=== PATIENT | male | born 1985 | race Caucasian/White ===

== ENCOUNTER 2021-09-06 10:39 | Emergency (ER) | payer MEDICAID, SELFPAY ==
[2021-09-06 10:55] VITALS: BP 148/104; PULSE 101; O2SAT 94
[2021-09-06 11:03] VITALS: BP 127/84; PULSE 90; RESP 18; TEMP 37.1; O2SAT 94; BMI 30.4
--- NOTE | 2021-09-06 11:10 | ED.MALEGU ---
HPI - Male Genitourinary General Chief complaint: Urogenital-Male Stated complaint: UNABLE TO EMPTY BLADDER FROM SNF Time Seen by Provider: 09/06/21 11:10 History of Present Illness HPI Narrative: Patient sent from halfway facility for possible urinary retention, he was uncomfortable and unable to urinate this morning, a bladder scan was done at the facility which showed he had retained 700 cc of urine, Rojas was placed later which only drained 50 or 60 cc and he was brought to the ER Here he is very comfortable, he does not feel a need to urinate when asked to void he was able to urinate a small quantity into a cup, he had no nausea no vomiting no abdominal pain no pain of any kind no discomfort no back pain no fever Related Data Home Medications Medication Instructions Recorded Confirmed acetaminophen 650 mg tablet 650 mg PO Q6H PRN Fever 09/06/21 09/06/21 Allergies Allergy/AdvReac Type Severity Reaction Status Date / Time No Known Allergies Allergy Verified 09/06/21 11:07 Review of Systems Review of Systems: Negatives are no fever no chills no dizziness no weakness no headache no neck pain no chest pain no abdominal pain no nausea or vomiting no dysuria no burning with urination, denies any frequency or burning with urination, denies any incontinence, no leg swelling no rash Yes all other systems are reviewed and are negative [facility] Past Medical History [facility] Narrative: Patient has history of neurogenic bladder, but is able to urinate on his own, 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 Source: nursing notes reviewed Social History Social History Advance Directives: No Advance Directives Information Provided: No Physical Exam Vital Signs: Vital Signs: Last Vital Signs Temp 98.7 F 09/06/21 13:11 Pulse 91 09/06/21 13:11 Resp 20 09/06/21 13:11 BP 127/75 09/06/21 13:11 Pulse Ox 94 09/06/21 13:11 O2 Del Method 09/06/21 13:11 BMI result Body Mass Index 30.4 General appearance comfortable cooperative no acute distress Head is normocephalic atraumatic The mucous membranes are moist The neck is supple Chest is clear to auscultation bilateral Heart no murmur Abdomen soft nontender, there is no bladder tenderness Extremities full range of motion x4 Course Course Course Narrative: Patient was able to void some urine, postvoid residual showed 120 mL remaining I called the nursing facility at [facility] and spoke to his nurse who said this is likely his baseline as he does have a neurogenic bladder Patient had no discomfort, labs were checked urinalysis was normal, renal function was normal no other acute abnormalities He was allowed to drink some fluids, then asked to void which she did easily and bladder scan was repeated showing a postvoid residual of 63 mL Patient is asymptomatic feels fine and is discharged [facility] - Male Genitourinary Lab Data Attestation: I reviewed the patient's lab results. Result diagrams: 09/06/21 13:00 09/06/21 13:01 Labs: Lab Results 09/06/21 09/06/21 09/06/21 Range/Units 11:59 13:00 13:01 WBC 8.9 (4.8-10.8) X10*3/uL RBC 5.38 (4.60-5.80) X10*6/uL Hgb 16.4 (14.0-18.0) g/dl Hct 47.9 (42.0-52.0) % MCV 89.0 (80.0-98.0) fL MCH 30.5 (27.0-33.0) pg MCHC 34.2 (31.0-36.0) g/dl RDW 12.8 (11.0-16.0) % Plt Count 253 (160-400) X10*3/uL MPV 11.4 (9.4-12.4) fL Immature Gran % (Auto) 0.3 (0.0-0.4) % Neut % (Auto) 69.1 (45-73) % Lymph % (Auto) 25.3 (20-40) % [place] % (Auto) 4.1 (2-11) % Eos % (Auto) 0.7 (0-4) % Baso % (Auto) 0.5 (0-2) % Lymph # (Auto) 2.2 (1.2-4.9) X10*3/uL [place] # (Auto) 0.4 (0.1-1.2) X10*3/uL Eos # (Auto) 0.1 (0.0-0.4) X10*3/uL Baso # (Auto) 0.0 (0.0-0.2) X10*3/uL Abs Immat Gran (auto) 0.03 (0.00-0.03) X10*3/uL Absolute Neuts (auto) 6.1 (2.0-8.3) x10*3/uL Absolute Nucleated RBC 0.000 (0.0-0.012) X10*3/uL Nucleated RBC % (auto) 0.0 (0.0-0.2) /100WBC Sodium 140 (135-145) mmol/L Potassium 4.1 (3.3-5.1) mmol/L Chloride 107 (96-108) mmol/L Carbon Dioxide 22 (22-29) mmol/L Anion Gap 15 (12-20) BUN 10 (9-16) mg/dL Creatinine 0.81 (0.5-1.4) mg/dL Estim Creat Clear Calc 150.9 Estimated GFR > 60 Random Glucose 120 H (60-115) mg/dL Calcium 9.7 (8.4-10.2) mg/dL Urine Color DK YELLOW Urine Appearance HAZY Urine pH 5.5 (5.0-8.0) Ur Specific [place] >= 1.030 H (1.005-1.025) Urine Protein 1+ H (NEG-TRACE) MG/DL Urine Glucose (UA) NEG (NEG) MG/DL Urine Ketones NEG (NEG) MG/DL Urine Blood TRACE (NEG) Urine Nitrite NEG (NEG) Ur Leukocyte Esterase NEG (NEG) Urine RBC 1-4 (0) /HPF Urine WBC 5-9 H (0-4) /HPF Ur Squamous Epith Cells 1+ /LPF Ur Renal Epithelial Cell 2+ /LPF Calcium Oxalate Crystal TRACE /LPF Urine Bacteria NONE /LPF Hyaline Casts 1-4 /LPF Urine Mucus 4+ /LPF Discharge Plan Discharge Clinical Impression: Dysuria Patient Disposition: Home, Self-Care Additional Instructions: At this time your voiding easily, we did a 2nd post void residual which showed 69 mL in the bladder which is normal, urinalysis did not show an acute infection, kidney function was normal Your okay to return to your facility Return any time any worse condition or any concerns Prescriptions: No Action acetaminophen 650 mg Tablet 650 mg PO Q6H PRN (Reason: Fever)
[2021-09-06 12:09] LABS: Appearance Urine HAZY; Color Urine DK YELLOW; Glucose Urine UA NEG (NEG); Leukocyte Esterase Urine NEG (NEG); Nitrite Urine NEG (NEG); PH 5.5 (5.0-8.0); Specific Gravity - Urine >= 1.030 (1.005-1.025); UACC Culture Trigger NO; Urine Blood TRACE (NEG); Urine Ketones NEG (NEG); Urine Protein 1+ MG/DL (NEG-TRACE)
[2021-09-06 13:07] LABS: MANUAL DIFF FLAG NO
[2021-09-06 13:07] LABS: Mucus Urine 4+ /LPF; Renal Epithelial Cells Urine 2+ /LPF; Squamous Epithelial Cell Urine 1+ /LPF; UACC CULT YES
[2021-09-06 13:08] LABS: Calcium Oxalate Crystals Urine TRACE /LPF
[2021-09-06 13:11] VITALS: BP 127/75; PULSE 91; RESP 20; TEMP 37.1; O2SAT 94
[2021-09-06 13:12] LABS: Basophils Percent Auto 0.5 % (0-2); Eosinophils Absolute Auto 0.1 X10*3/uL (0.0-0.4); Eosinophils Percent Auto 0.7 % (0-4); Hematocrit 47.9 % (42.0-52.0); Hemoglobin 16.4 g/dl (14.0-18.0); Imm Gran Abs Auto 0.03 X10*3/uL (0.00-0.03); Imm Gran Pct Auto 0.3 % (0.0-0.4); Lymphocytes Absolute Auto 2.2 X10*3/uL (1.2-4.9); Lymphocytes Percent Auto 25.3 % (20-40); Mean Corpuscular HGB Conc 34.2 g/dl (31.0-36.0); Mean Corpuscular Hemoglobin 30.5 pg (27.0-33.0); Mean Platelet Volume 11.4 fL (9.4-12.4); Monocytes Absolute Auto 0.4 X10*3/uL (0.1-1.2); Monocytes Percent Auto 4.1 % (2-11); Neutrophils Absolute Auto 6.1 x10*3/uL (2.0-8.3); Neutrophils Percent Auto 69.1 % (45-73); Platelet Count 253 X10*3/uL (160-400); Red Blood Count 5.38 X10*6/uL (4.60-5.80); Red Cell Distribution Width 12.8 % (11.0-16.0); White Blood Count 8.9 X10*3/uL (4.8-10.8)
[2021-09-06 13:24] LABS: Anion Gap 15 (12-20); Blood Urea Nitrogen 10 mg/dL (9-16); Calcium 9.7 mg/dL (8.4-10.2); Carbon Dioxide 22 mmol/L (22-29); Chloride 107 mmol/L (96-108); Creatinine Clr Calc Pharmacy 150.9; Estimated Glomerular Filt Rate > 60; Glucose Random 120 mg/dL (60-115); Potassium 4.1 mmol/L (3.3-5.1); Sodium 140 mmol/L (135-145)
--- NOTE | 2021-09-06 14:13 | PC.NURSE ---
Patient moved to ED Bed 22 More. Plan for EMS transfer back to [facility]. Estimated time of EMS arrival is 8pm at this time, per ED [place], Pam. Pt is calm/cooperative at this time.
--- NOTE | 2021-09-06 18:53 | PHA.MEDREC ---
Pharmacy Consult ? Medication Reconciliation Pharmacy has completed the medication reconciliation. List obtained from [facility]
[2021-09-06] MEDS: clonazePAM 0.5 MG TABLET PO (22:52)
--- NOTE | 2021-09-06 23:08 | PC.NURSE ---
spoke w RN at [facility], pt medicated w pm clonazepam.
--- NOTE | 2021-09-07 00:19 | PC.NURSE ---
Per action dispatch enzo, [facility] will take transfer
== END 2021-09-07 01:30 | disposition skilled nursing facility (03) ==
PROVIDERS: Physician Assistant Medical; Emergency Provider Emergency Medicine Emergency Medical Services; PCP Hospitalist
DX: R30.0 Dysuria (principal)
CPT/HCPCS: 36415; 51798; 80048; 81001; 85025; 87086; 99283

== ENCOUNTER → 2021-09-17 10:23 | Outpatient (BNVA) | payer MEDICAID, SELFPAY | PROVIDERS: PCP Hospitalist; Visit Provider Urology | DX: R33.9 Retention of urine, unspecified (principal) | CPT/HCPCS: 51798; 99202 ==

== ENCOUNTER 2021-12-15 21:40 | Emergency (ER) | payer MEDICAID, SELFPAY ==
--- NOTE | ~2021-12-15 | XR_ITS ---
EXAMINATION: XR CHEST CLINICAL INFORMATION: Diaphoresis and tremors. Rule out pneumonia. COMPARISON: None TECHNIQUE: Frontal view of the chest was obtained. FINDINGS: Cardiac leads overlie the chest. Elevated right hemidiaphragm. No consolidation, edema, or effusion. No pneumothorax. The cardiomediastinal silhouette is within normal limits. No acute osseous abnormality. XR/XR chest 1V IMPRESSION: No acute pulmonary disease.
[2021-12-15 21:50] VITALS: BP 130/90; BP 131/84; PULSE 102; PULSE 103; RESP 18; TEMP 37.1; O2SAT 94; O2SAT 95; BMI 30.3
--- NOTE | 2021-12-15 21:56 | ED_ITS ---
HPI - General Adult General Chief complaint: General Medical Stated complaint: tremors Time Seen by Provider: 12/15/21 21:46 Source: patient and EMS Mode of arrival: EMS Limitations: no limitations History of Present Illness HPI narrative: 36-year-old male history of anoxic brain injury patient is a resident of [facility] brought in by ambulance for evaluation of diaphoresis and increased tremor and shakiness all day today. Patient declined using any drugs or overdosing on any of his medication, decline headache, chest pain, or abdominal pain. Related Data Home Medications Medication Instructions Recorded Confirmed acetaminophen 650 mg tablet 650 mg PO Q6H PRN Fever 09/06/21 09/06/21 baclofen 10 mg tablet 1 tab PO TID 09/06/21 09/06/21 bisacodyl 10 mg rectal suppository 10 mg [place] DAILY PRN Constipation 09/06/21 09/06/21 cholecalciferol (vitamin D3) 25 25 mcg PO DAILY 09/06/21 09/06/21 mcg (1,000 unit) tablet clonazepam 0.25 mg disintegrating 0.25 mg PO BID 09/06/21 09/06/21 tablet diclofenac sodium 1 % topical gel 1 ea topical DAILY 09/06/21 09/06/21 docusate sodium 100 mg capsule 100 mg PO BID 09/06/21 09/06/21 hydrocortisone 2.5 % topical cream 1 appl topical DAILY 09/06/21 09/06/21 levetiracetam 250 mg tablet 1 tab PO BID 09/06/21 09/06/21 pramipexole 1 mg tablet 1 tab PO BEDTIME 09/06/21 09/06/21 pyridoxine (vitamin B6) 50 mg 50 mg PO DAILY 09/06/21 09/06/21 capsule thiamine HCl (vitamin B1) 100 mg 100 mg PO DAILY 09/06/21 09/06/21 tablet clonazepam 0.5 mg tablet 0.5 mg PO DAILY PRN 09/16/21 levetiracetam 1,000 mg tablet 1,000 mg PO BID 09/16/21 levetiracetam 500 mg tablet 500 mg PO BID 09/16/21 pramipexole 0.25 mg tablet mg PO 09/16/21 pramipexole 0.5 mg tablet 0.5 mg PO BEDTIME 09/16/21 Previous Rx's Medication Instructions Recorded bethanechol chloride 50 mg tablet 50 mg PO BID 90 days #180 tabs 09/17/21 Allergies Allergy/AdvReac Type Severity Reaction Status Date / Time No Known Allergies Allergy Verified 09/16/21 15:14 Review of Systems Review of Systems: All other systems are reviewed and are negative Constitutional: Reports as per HPI and Reports no additional constitutional complaints Eyes: Reports as per HPI and Reports no additional eye complaints Reports system reviewed and no additional complaints, except as documented Cardiovascular: Reports as per HPI and Reports no additional cardiovascular complaints Respiratory: Reports as per HPI and Reports no additional respiratory complaints Gastrointestinal: Reports as per HPI and Reports no additional gastrointestinal complaints Genitourinary: Reports no additional female genitourinary complaints Musculoskeletal: Reports no additional musculoskeletal complaints Skin/Breast: Reports system reviewed and no additional complaints, except as docu Psychiatric: Reports no additional psychiatric complaints Endocrine: Reports no additional endocrine complaints Hematologic/Lymphatic: Reports no additional hematologic/lymphatic complaints Allergic/Immunologic: Reports no additional allergic/immunologic complaints Reports system reviewed and no additional complaints, except as documented and Reports Abnormal speech present [facility] Past Medical History Medical History Acute insomnia Anoxic brain damage Anxiety Constipation Dry eye syndrome Dysarthria Gait abnormality Myalgia Neurogenic bladder Social History Social History Advance Directives: No Advance Directives Information Provided: No Physical Exam ED Vital Signs: Vital Signs - 24 hr 12/15/21 21:50 12/15/21 22:14 Temperature 98.7 F 98.9 F Pulse Rate 103 H 84 Respiratory Rate 18 16 Blood Pressure 131/84 130/79 Pulse Oximetry 94 91 L Oxygen Delivery Method Room Air Room Air BMI result Body Mass Index 30.3 Vital signs have been reviewed as appeared to be correct. Blood pressure normal. Heart rate normal. Respiration rate normal. Temperature normal. Oxygen saturation normal. Appearance: Alert. No acute distress, involuntary tremors Head: Normal external exam. Normocephalic. Atraumatic. No Ramirez signs noted. No raccoon eyes noted Eyes: PERRLA. EOMI. Conjunctiva and sclera normal. Eyelids normal. ENT: TM's Normal. Pharynx normal. Uvula midline. Moist mucous membranes. No trismus noted. No drooling noted. No muffled voice noted. Neck: Normal inspection. Neck supple. FROM. No adenopathy. Thyroid Normal. No meningeal signs. No neck mass noted. CVS: Normal heart rate and rhythm. Heart sound normal. No murmurs noted. Pulses normal throughout. Respiratory: No respiratory distress. Painless inspiration. Breath sounds norm al. No wheezes/rales/rhonchi noted. Chest nontender. No accessory muscle usage noted or decreased air movement noted. Abdomen: Soft and nontender. Bowel sounds normal in all 4 quadrants. No distenti on noted. No organomegaly noted. No visible injury noted. Back: No CVA tenderness. Full range of motion noted. Skin: Skin warm and dry. Normal skin color. Normal skin turgor. No rashes/lesions/lacerations noted. Extremities: No lower extremity edema. Extremities exhibit normal range of motion. Extremities nontender. Neuro: Oriented X 3. Cranial nerve exam: II-XII are grossly intact No motor deficit. No sensory deficit. Reflexes normal. Fine involuntary tremors Course Course Course Narrative: 36-year-old male with with history of anoxic brain injury came in complaining of tremors, physical exam is unremarkable, patient able to drink and eat in the emergency department with good appetite, chest x-ray is unremarkable. Patient has no symptoms to suggest infection. Patient now is sleeping relaxed with no apparent distress. Will discharge in the a.m.. Medical Decision Making Lab Data Lab results reviewed: Yes I reviewed the patient's lab results. Result diagrams: 12/15/21 22:05 12/15/21 22:59 Labs: Lab Results 12/15/21 12/15/21 12/15/21 Range/Units 22:05 22:05 22:05 WBC 9.0 (4.8-10.8) X10*3/uL RBC 5.28 (4.60-5.80) X10*6/uL Hgb 16.3 (14.0-18.0) g/dl Hct 47.8 (42.0-52.0) % MCV 90.5 (80.0-98.0) fL MCH 30.9 (27.0-33.0) pg MCHC 34.1 (31.0-36.0) g/dl RDW 12.8 (11.0-16.0) % Plt Count 278 (160-400) X10*3/uL MPV 11.8 (9.4-12.4) fL Immature Gran % (Auto) 0.2 (0.0-0.4) % Neut % (Auto) 48.1 (45-73) % Lymph % (Auto) 43.1 H (20-40) % [place] % (Auto) 5.9 (2-11) % Eos % (Auto) 2.3 (0-4) % Baso % (Auto) 0.4 (0-2) % Lymph # (Auto) 3.9 (1.2-4.9) X10*3/uL [place] # (Auto) 0.5 (0.1-1.2) X10*3/uL Eos # (Auto) 0.2 (0.0-0.4) X10*3/uL Baso # (Auto) 0.0 (0.0-0.2) X10*3/uL Abs Immat Gran (auto) 0.02 (0.00-0.03) X10*3/uL Absolute Neuts (auto) 4.3 (2.0-8.3) x10*3/uL Absolute Nucleated RBC 0.000 (0.0-0.012) X10*3/uL Nucleated RBC % (auto) 0.0 (0.0-0.2) /100WBC Sodium 142 (135-145) mmol/L Potassium 4.6 (3.3-5.1) mmol/L Chloride 107 (96-108) mmol/L Carbon Dioxide 25 (22-29) mmol/L Anion Gap 15 (12-20) BUN 14 (9-16) mg/dL Creatinine 0.85 (0.5-1.4) mg/dL Estim Creat Clear Calc 142.3 Estimated GFR > 60 Random Glucose 77 D (60-115) mg/dL Lactic Acid (0.5-2.0) mmol/L Calcium 9.9 (8.4-10.2) mg/dL Total Bilirubin 0.5 (0.0-1.0) mg/dL Direct Bilirubin < 0.2 (0.0-0.5) mg/dL AST 41 H (5-37) U/L ALT 64 H (0-40) U/L Alkaline Phosphatase 72 (39-117) U/L B-Natriuretic Peptide < 10 (<100) pg/mL Total Protein 7.5 (6.5-8.0) g/dL Albumin 4.7 (3.5-5.0) g/dL Lipase 26 (8-78) U/L Urine Color Urine Appearance Urine pH (5.0-9.0) Ur Specific [place] (1.005-1.025) Urine Protein (Neg-Trace) mg/dL Urine Glucose (UA) (Negative) mg/dL Urine Ketones (Negative) mg/dL Urine Blood (Negative) Urine Nitrite (Negative) Ur Leukocyte Esterase (Negative) COVID-19 (TINO) (Negative) COVID-19 Clin Com 12/15/21 12/15/21 12/15/21 Range/Units 22:05 22:59 22:59 WBC (4.8-10.8) X10*3/uL RBC (4.60-5.80) X10*6/uL Hgb (14.0-18.0) g/dl Hct (42.0-52.0) % MCV (80.0-98.0) fL MCH (27.0-33.0) pg MCHC (31.0-36.0) g/dl RDW (11.0-16.0) % Plt Count (160-400) X10*3/uL MPV (9.4-12.4) fL Immature Gran % (Auto) (0.0-0.4) % Neut % (Auto) (45-73) % Lymph % (Auto) (20-40) % [place] % (Auto) (2-11) % Eos % (Auto) (0-4) % Baso % (Auto) (0-2) % Lymph # (Auto) (1.2-4.9) X10*3/uL [place] # (Auto) (0.1-1.2) X10*3/uL Eos # (Auto) (0.0-0.4) X10*3/uL Baso # (Auto) (0.0-0.2) X10*3/uL Abs Immat Gran (auto) (0.00-0.03) X10*3/uL Absolute Neuts (auto) (2.0-8.3) x10*3/uL Absolute Nucleated RBC (0.0-0.012) X10*3/uL Nucleated RBC % (auto) (0.0-0.2) /100WBC Sodium 142 (135-145) mmol/L Potassium 4.2 (3.3-5.1) mmol/L Chloride 106 (96-108) mmol/L Carbon Dioxide 27 (22-29) mmol/L Anion Gap 13 (12-20) BUN 15 (9-16) mg/dL Creatinine 0.90 (0.5-1.4) mg/dL Estim Creat Clear Calc 134.4 Estimated GFR > 60 Random Glucose 123 H D (60-115) mg/dL Lactic Acid 1.4 (0.5-2.0) mmol/L Calcium 9.6 (8.4-10.2) mg/dL Total Bilirubin (0.0-1.0) mg/dL Direct Bilirubin (0.0-0.5) mg/dL AST (5-37) U/L ALT (0-40) U/L Alkaline Phosphatase (39-117) U/L B-Natriuretic Peptide (<100) pg/mL Total Protein (6.5-8.0) g/dL Albumin (3.5-5.0) g/dL Lipase (8-78) U/L Urine Color Urine Appearance Urine pH (5.0-9.0) Ur Specific [place] (1.005-1.025) Urine Protein (Neg-Trace) mg/dL Urine Glucose (UA) (Negative) mg/dL Urine Ketones (Negative) mg/dL Urine Blood (Negative) Urine Nitrite (Negative) Ur Leukocyte Esterase (Negative) COVID-19 (TINO) Negative (Negative) COVID-19 Clin Com See Note 12/16/21 Range/Units 00:32 WBC (4.8-10.8) X10*3/uL RBC (4.60-5.80) X10*6/uL Hgb (14.0-18.0) g/dl Hct (42.0-52.0) % MCV (80.0-98.0) fL MCH (27.0-33.0) pg MCHC (31.0-36.0) g/dl RDW (11.0-16.0) % Plt Count (160-400) X10*3/uL MPV (9.4-12.4) fL Immature Gran % (Auto) (0.0-0.4) % Neut % (Auto) (45-73) % Lymph % (Auto) (20-40) % [place] % (Auto) (2-11) % Eos % (Auto) (0-4) % Baso % (Auto) (0-2) % Lymph # (Auto) (1.2-4.9) X10*3/uL [place] # (Auto) (0.1-1.2) X10*3/uL Eos # (Auto) (0.0-0.4) X10*3/uL Baso # (Auto) (0.0-0.2) X10*3/uL Abs Immat Gran (auto) (0.00-0.03) X10*3/uL Absolute Neuts (auto) (2.0-8.3) x10*3/uL Absolute Nucleated RBC (0.0-0.012) X10*3/uL Nucleated RBC % (auto) (0.0-0.2) /100WBC Sodium (135-145) mmol/L Potassium (3.3-5.1) mmol/L Chloride (96-108) mmol/L Carbon Dioxide (22-29) mmol/L Anion Gap (12-20) BUN (9-16) mg/dL Creatinine (0.5-1.4) mg/dL Estim Creat Clear Calc Estimated GFR Random Glucose (60-115) mg/dL Lactic Acid (0.5-2.0) mmol/L Calcium (8.4-10.2) mg/dL Total Bilirubin (0.0-1.0) mg/dL Direct Bilirubin (0.0-0.5) mg/dL AST (5-37) U/L ALT (0-40) U/L Alkaline Phosphatase (39-117) U/L B-Natriuretic Peptide (<100) pg/mL Total Protein (6.5-8.0) g/dL Albumin (3.5-5.0) g/dL Lipase (8-78) U/L Urine Color Yellow Urine Appearance Clear Urine pH 6.0 (5.0-9.0) Ur Specific [place] 1.025 (1.005-1.025) Urine Protein Trace (Neg-Trace) mg/dL Urine Glucose (UA) Negative (Negative) mg/dL Urine Ketones Trace (Negative) mg/dL Urine Blood Negative (Negative) Urine Nitrite Negative (Negative) Ur Leukocyte Esterase Negative (Negative) COVID-19 (TINO) (Negative) COVID-19 Clin Com Imaging Data Chest x-ray: Attestation: I personally reviewed and interpreted this imaging study as follows: Radiologist's impression: No acute pulmonary disease. Discharge Plan Discharge Clinical Impression: Occasional tremors Patient Disposition: Home, Self-Care Instructions: Tremors (ED) Prescriptions: No Action acetaminophen 650 mg Tablet 650 mg PO Q6H PRN (Reason: Fever) pramipexole 1 mg tablet 1 tab PO BEDTIME levetiracetam 250 mg tablet 1 tab PO BID baclofen 10 mg tablet 1 tab PO TID hydrocortisone 2.5 % cream 1 appl topical DAILY diclofenac sodium 1 % gel 1 ea topical DAILY thiamine HCl (vitamin B1) 100 mg Tablet 100 mg PO DAILY bisacodyl 10 mg Suppository 10 mg [place] DAILY PRN (Reason: Constipation) docusate sodium 100 mg Capsule 100 mg PO BID clonazepam 0.25 mg Tablet,Disintegrating 0.25 mg PO BID cholecalciferol (vitamin D3) 25 mcg (1,000 unit) Tablet 25 mcg PO DAILY pyridoxine (vitamin B6) 50 mg Capsule 50 mg PO DAILY clonazepam 0.5 mg tablet 0.5 mg PO DAILY PRN pramipexole 0.25 mg tablet PO levetiracetam 500 mg tablet 500 mg PO BID pramipexole 0.5 mg tablet 0.5 mg PO BEDTIME levetiracetam 1,000 mg tablet 1,000 mg PO BID bethanechol chloride 50 mg tablet 50 mg PO BID 90 Days Qty: 180 1RF Referrals: Physician,Unknown J [Primary Care Provider] -
[2021-12-15] MEDS: 0.9 % Sodium Chloride 1,000 ML 999 ML IV (22:10)
[2021-12-15 22:12] LABS: MANUAL DIFF FLAG NO
[2021-12-15 22:13] LABS: Basophils Percent Auto 0.4 % (0-2); Eosinophils Absolute Auto 0.2 X10*3/uL (0.0-0.4); Eosinophils Percent Auto 2.3 % (0-4); Hematocrit 47.8 % (42.0-52.0); Hemoglobin 16.3 g/dl (14.0-18.0); Imm Gran Abs Auto 0.02 X10*3/uL (0.00-0.03); Imm Gran Pct Auto 0.2 % (0.0-0.4); Lymphocytes Absolute Auto 3.9 X10*3/uL (1.2-4.9); Lymphocytes Percent Auto 43.1 % (20-40); Mean Corpuscular HGB Conc 34.1 g/dl (31.0-36.0); Mean Corpuscular Hemoglobin 30.9 pg (27.0-33.0); Mean Corpuscular Volume 90.5 fL (80.0-98.0); Mean Platelet Volume 11.8 fL (9.4-12.4); Monocytes Absolute Auto 0.5 X10*3/uL (0.1-1.2); Monocytes Percent Auto 5.9 % (2-11); Neutrophils Absolute Auto 4.3 x10*3/uL (2.0-8.3); Neutrophils Percent Auto 48.1 % (45-73); Platelet Count 278 X10*3/uL (160-400); Red Blood Count 5.28 X10*6/uL (4.60-5.80); Red Cell Distribution Width 12.8 % (11.0-16.0)
[2021-12-15 22:14] VITALS: BP 130/79; PULSE 84; RESP 16; TEMP 37.2; O2SAT 91
[2021-12-15 22:25] LABS: COVID-19 Test Negative (Negative)
[2021-12-15 22:34] LABS: Alanine Aminotransferase 64 U/L (0-40); Albumin Level 4.7 g/dL (3.5-5.0); Alkaline Phosphatase 72 U/L (39-117); Anion Gap 15 (12-20); Aspartate Amino Transferase 41 U/L (5-37); Bilirubin Direct < 0.2 mg/dL (0.0-0.5); Bilirubin Total 0.5 mg/dL (0.0-1.0); Blood Urea Nitrogen 14 mg/dL (9-16); Calcium 9.9 mg/dL (8.4-10.2); Carbon Dioxide 25 mmol/L (22-29); Chloride 107 mmol/L (96-108); Creatinine Clr Calc Pharmacy 142.3; Estimated Glomerular Filt Rate > 60; Glucose Random 77 mg/dL (60-115); Lipase 26 U/L (8-78); Potassium 4.6 mmol/L (3.3-5.1); Sodium 142 mmol/L (135-145); Total Protein 7.5 g/dL (6.5-8.0)
[2021-12-15 22:58] LABS: B Type Natriuretic Peptide < 10 pg/mL (<100)
[2021-12-15 23:16] LABS: Lactic Acid 1.4 mmol/L (0.5-2.0)
[2021-12-15 23:19] LABS: Anion Gap 13 (12-20); Blood Urea Nitrogen 15 mg/dL (9-16); Calcium 9.6 mg/dL (8.4-10.2); Carbon Dioxide 27 mmol/L (22-29); Chloride 106 mmol/L (96-108); Creatinine Clr Calc Pharmacy 134.4; Estimated Glomerular Filt Rate > 60; Glucose Random 123 mg/dL (60-115); Potassium 4.2 mmol/L (3.3-5.1); Sodium 142 mmol/L (135-145)
[2021-12-16 00:41] LABS: Appearance Urine Clear; Color Urine Yellow; Glucose Urine UA Negative (Negative); Leukocyte Esterase Urine Negative (Negative); Nitrite Urine Negative (Negative); Specific Gravity - Urine 1.025 (1.005-1.025); Urine Blood Negative (Negative); Urine Ketones Trace mg/dL (Negative); Urine Protein Trace mg/dL (Neg-Trace)
--- NOTE | 2021-12-16 02:14 | PC.NURSE ---
Patient is alert and oriented x3. He is able to make his needs known. Patient uses urinal independently. Patient is resting comfortably with his eyes closed. VSS, afebrile. Patient is less diaphoretic, no tremors noted when sleeping/calm/at rest.
--- NOTE | 2021-12-16 02:29 | PC.NURSE ---
Kalia called at 0230 for a BLS transfer back to [facility],Dispatch stated they will call back with an ETA.RN aware
--- NOTE | 2021-12-16 02:35 | PC.NURSE ---
Lázaro called at 0235 with an ETA of after 7am. RN aware
== END 2021-12-16 10:37 | disposition home or self-care (01) ==
PROVIDERS: Emergency Provider Emergency Medicine
DX: R25.1 Tremor, unspecified (principal); R61 Generalized hyperhidrosis; Z20.822 Contact with and (suspected) exposure to COVID-19; Z79.899 Other long term (current) drug therapy
CPT/HCPCS: 71045; 80048; 80076; 81003; 83605; 83690; 83880; 85025; 87040; 87635; 96360; 96361; 99284

== ENCOUNTER → 2022-03-21 10:03 | Outpatient (BNVA) | payer MEDICAID, SELFPAY | PROVIDERS: PCP Hospitalist; Visit Provider Urology | DX: R33.9 Retention of urine, unspecified (principal); N31.9 Neuromuscular dysfunction of bladder, unspecified | CPT/HCPCS: 51798; 99212 ==

== ENCOUNTER 2022-09-25 10:33 | Outpatient (AMB) | payer MEDICAID, SELFPAY ==
--- NOTE | 2022-09-25 10:45 | MHC.OFFVIS ---
Intake Intake Visit Reasons: 6m follow up/PVR Intake Note: Patient is present for PVR Urology Med: Betehanechol, Vitamin b6 Antibiotic Allergy:None Blood Thinner: None Pharmacy: [facility] PVR: 0ml Allergies No Known Allergies Allergy (Verified 09/25/22 10:46) HPI HPI Comments History of Present Illness Details Dino is a [facility] resident. He is a patient of Dr. Bull. He is seen for the following urologic condition - incomplete bladder emptying, neurogenic bladder Continued good response to bethanechol PVR today 0 cc Follow every 6 months - see nurse practitioner 6 months for review Incomplete bladder emptying Background seizure disorder Long-term medication Resident of a care facility Wheelchair dependent Initial High PVR Current therapy bethanechol PFSH Medical History Acute insomnia Anoxic brain damage Anxiety Constipation Dry eye syndrome Dysarthria Gait abnormality Myalgia Neurogenic bladder Review of Systems Const Denies chills and Denies fever(s) Card Reports no additional complaints and Denies syncope Resp Denies cough GI Denies abdominal pain and Denies heartburn Reports as per HPI and Denies change in libido Neuro Denies syncope Psych Denies change in libido Endo Denies change in libido Physical Exam Const General: cooperative, healthy appearing, comfortable and no acute distress Orientation/consciousness: patient oriented x3 HEENT Face and sinus: Yes normal facial exam Mouth: moist mucous membranes Neck Neck: Yes normal visual inspection, Yes full ROM and Yes trachea midline Chest Chest palpation & inspection: normal inspection of the chest Resp Effort & Inspection: normal respiratory effort, able to speak in complete sentences and no respiratory distress GI Inspection: Yes normal to inspection Back/Spine/Pelvis Cervical Spine: normal cervical lordosis Thoracic/Lumbar Spine: thoracic and lumbar spine normal to inspection Skin General skin exam: no rashes or lesions noted Neuro General: patient oriented x3, gait normal, tone normal and moves all extremities Extrem General: Yes normal to inspection and Yes capillary refill normal Office Procedures Post Void Residual Post Residual Void Post Void Residual (PVR): 0 34621-Muis Void Residual by ultrasound Assessment & Plan Assessment & Plan (1) Urinary retention with incomplete bladder emptying: Code(s): R33.9 - Retention of urine, unspecified Plan Six month follow-up Orders: Orders AMB Post Void Residual by ultrasound Today R33.9 - Retention of urine, unspecified Patient Instructions: Imaging studies, laboratory and physical exam results were discussed and reviewed in detail. No major barriers to patient understanding were identified. An opportunity to ask questions regarding the treatment plan was provided. All questions were answered. The patient expressed understanding and agreement with the above treatment plan. The patient is aware they should contact our office by phone for worsening of their current condition or the appearance of new urologic symptoms. Compliance is encouraged with any medications and followup testing that is ordered. It is a privilege to participate in the urologic care of your patient. If you have any questions or concerns regarding treatment for the above conditions, or other urologic issues, please do not hesitate to contact me. The office telephone contact is [phone]. This note is constructed using voice recognition software. While every effort has been made to ensure accuracy printed circuit boards plasma etcher errors may have been included. Yours sincerely, Dr Kelvin Nunez MD, [facility] - Urology Providers of Expert, Compassionate Care for the Genitourinary System Coding Level of Care Code Est Pt Level 3 (51902) Diagnoses Urinary retention with incomplete bladder emptying R33.9 CPT Codes Post Residual Void - PVR CPT Code: 14939-Tbys Void Residual by ultrasound ([id number])
== END 2022-09-25 10:59 | disposition home or self-care (01) ==
LOC: HO.HUSH 10:33
PROVIDERS: PCP Hospitalist; Visit Provider Urology
DX: R33.9 Retention of urine, unspecified (principal)
CPT/HCPCS: 99213

== ENCOUNTER → 2022-09-25 10:33 | Outpatient (BNVA) | payer MEDICAID, SELFPAY | PROVIDERS: PCP Hospitalist; Visit Provider Urology | DX: N31.9 Neuromuscular dysfunction of bladder, unspecified (principal); R33.9 Retention of urine, unspecified | CPT/HCPCS: 51798; 99212 ==

== ENCOUNTER 2023-07-08 14:02 | Outpatient (AMB) | payer MEDICAID, SELFPAY ==
--- NOTE | 2023-07-08 14:31 | A.OFFVIS_ITS ---
Intake Visit Reasons: 6m/PVR Intake Note: Patient is present for PVR Urology Med: Betehanechol, Vitamin b6 Antibiotic Allergy:None Blood Thinner: None Pharmacy: formerly [facility] PVR: 0ml Recreational Vehicle Repairer Required: No Accompanied by: Self / Same As Patient Allergies No Known Allergies Allergy (Verified 09/25/22 10:46) Medication List - Last Reconciled 07/08/23 by Kelvin Nunez MD acetaminophen 650 mg PO Q6H PRN baclofen 1 tab PO TID bethanechol chloride 50 mg PO BID 90 days bisacodyl 10 mg MD DAILY PRN cholecalciferol (vitamin D3) 25 mcg PO DAILY clonazepam 0.25 mg PO BID clonazepam 0.5 mg PO DAILY PRN diclofenac sodium 1% 1 ea topical DAILY docusate sodium 100 mg PO BID duloxetine 30 mg PO DAILY hydrocortisone 2.5% 1 appl topical DAILY levetiracetam 1 tab PO BID levetiracetam 500 mg PO BID levetiracetam 1,000 mg PO BID pramipexole 1 tab PO BEDTIME pramipexole mg PO pramipexole 0.5 mg PO BEDTIME pyridoxine (vitamin B6) 50 mg PO DAILY thiamine HCl (vitamin B1) 100 mg PO DAILY HPI Comments Details: Dino is a formerly [facility] resident. He is a patient of Dr. Bull. He is seen for the following urologic condition - incomplete bladder emptying, neurogenic bladder Continued good response to bethanechol PVR today 0 cc See in 12 months with nurse practitioner Incomplete bladder emptying Background seizure disorder Long-term medication Resident of a care facility Wheelchair dependent Initial High PVR Current therapy bethanechol PFSH Medical History Neurogenic bladder Dysarthria Gait abnormality Myalgia Dry eye syndrome Anoxic brain damage Anxiety Constipation Acute insomnia Review of Systems Const Denies chills and Denies fever(s) Card Reports no additional complaints and Denies syncope Resp Denies cough GI Denies abdominal pain and Denies heartburn Reports as per HPI and Denies change in libido Neuro Denies syncope Psych Denies change in libido Endo Denies change in libido Physical Exam Const General: cooperative, healthy appearing, comfortable and no acute distress Orientation/consciousness: patient oriented x3 HEENT Face and sinus: Yes normal facial exam Mouth: moist mucous membranes Neck Neck: Yes normal visual inspection, Yes full ROM and Yes trachea midline Chest Chest palpation & inspection: normal inspection of the chest Resp Effort & Inspection: normal respiratory effort, able to speak in complete sentences and no respiratory distress GI Inspection: Yes normal to inspection Back/Spine/Pelvis Cervical Spine: normal cervical lordosis Thoracic/Lumbar Spine: thoracic and lumbar spine normal to inspection Skin General skin exam: no rashes or lesions noted Neuro General: patient oriented x3, gait normal, tone normal and moves all extremities Extrem General: Yes normal to inspection and Yes capillary refill normal Office Procedures Post Void Residual Post Residual Void Post Void Residual (PVR): 0 10430-Rxwi Void Residual by ultrasound Assessment & Plan Assessment & Plan (1) Urinary retention with incomplete bladder emptying: Code(s): R33.9 - Retention of urine, unspecified Category: Medical Plan Twelve month follow-up nurse-practitioner orifice Orders: Orders AMB Post Void Residual by ultrasound 07/08/23 N39.8 - Other specified disorders of urinary system Medications: Refilled bethanechol chloride 50 mg PO BID 180 tabs 3RF 90 days R33.9 - Retention of urine, unspecified Patient Instructions: Imaging studies, laboratory and physical exam results were discussed and reviewed in detail. No major barriers to patient understanding were identified. An opportunity to ask questions regarding the treatment plan was provided. All questions were answered. The patient expressed understanding and agreement with the above treatment plan. The patient is aware they should contact our office by phone for worsening of their current condition or the appearance of new urologic symptoms. Compliance is encouraged with any medications and followup testing that is ordered. It is a privilege to participate in the urologic care of your patient. If you have any questions or concerns regarding treatment for the above conditions, or other urologic issues, please do not hesitate to contact me. The office telephone contact is [phone]. This note is constructed using voice recognition software. While every effort has been made to ensure accuracy regulator assembler errors may have been included. Yours sincerely, Dr Kelvin Nunez MD, [facility] - Urology Providers of Expert, Compassionate Care for the Genitourinary System Coding Level of Care Code Est Pt Level 3 (59764) Diagnoses Urinary retention with incomplete bladder emptying R33.9 CPT Codes Post Residual Void - PVR CPT Code: 20506-Jcry Void Residual by ultrasound ([id number])
== END 2023-07-08 15:02 | disposition home or self-care (01) ==
LOC: HO.HUSH 14:24
PROVIDERS: PCP Hospitalist; Visit Provider Urology
DX: R33.9 Retention of urine, unspecified (principal)
CPT/HCPCS: 99213

== ENCOUNTER → 2023-07-08 14:24 | Outpatient (BNVA) | payer MEDICAID, SELFPAY | PROVIDERS: PCP Hospitalist; Visit Provider Urology | DX: R33.9 Retention of urine, unspecified (principal); N31.9 Neuromuscular dysfunction of bladder, unspecified | CPT/HCPCS: 51798; 99212 ==

== ENCOUNTER 2024-07-06 10:29 | Outpatient (AMB) | payer MEDICAID, SELFPAY ==
--- NOTE | 2024-07-06 10:34 | A.OFFVIS_ITS ---
Intake Visit Reasons: 1y/PVR Intake Note: Patient presents today for follow up on: retention Urology Med: Betehanechol, Vitamin b6 Antibiotic Allergy:None Blood Thinner: None Pharmacy: [facility] PVR: 177ml's Rotary Bar Operator Required: No Accompanied by: swift tender Allergies No Known Allergies Allergy (Verified 07/06/24 20:43) Medication List - Last Reconciled 07/06/24 by MILLIE Hernandez acetaminophen 650 mg PO Q6H PRN atorvastatin 10 mg PO DAILY baclofen 1 tab PO TID bethanechol chloride 50 mg PO BID 90 days bisacodyl 10 mg SD DAILY PRN carboxymethylcellulose sodium 1% (Artificial Tears (carboxymethylcellulose)) 1 drp ophthalmic (eye) QID cholecalciferol (vitamin D3) 25 mcg PO DAILY clonazepam 0.5 mg PO BEDTIME PRN dextroamphetamine-amphetamine 15 mg ER (Adderall XR) 30 mg PO DAILY diclofenac sodium 1% 1 ea topical DAILY docusate sodium 100 mg PO BID duloxetine 30 mg PO DAILY hydrocortisone 2.5% 1 appl topical DAILY levetiracetam (Keppra) 750 mg PO ONCE nicotine 1 patch transdermal DAILY omega-3 fatty acids 1,000 mg PO DAILY pramipexole 1 tab PO BEDTIME pyridoxine (vitamin B6) 50 mg PO DAILY sodium phosphates 19-7 gram/118 mL (Fleet Enema) 118 mL SD DAILY PRN thiamine HCl (vitamin B1) 100 mg PO DAILY HPI Comments Details: Dino is a 38-year-old male patient of Dr. Bull who resides at [facility]. He has a past medical history of neurogenic bladder, dysarthria, gait abnormality, malacia, dry eye syndrome, anoxic brain in damage, anxiety, constipation, and insomnia. He presents to the office today for follow-up of his neurogenic bladder/incomplete bladder emptying. In discussion with the patient today he continues to discuss not wanting to be on any medications especially bladder medications as he feels he does not have a bladder issue. Unable to obtain urine today for urinalysis as patient unable to void however PVR 177ml's. We discussed potential causes and affects of incomplete bladder emptying and importance of taking medications as prescribed as he does report refusal noncompliance of all medications while residing at [facility]. He denies urinary urgency, urinary frequency, incontinence, nocturia, hematuria, dysuria, foul smelling urine, changes to urinary stream, flank pain, fever, and or chills. He is happy with his current voiding parameters. He otherwise offers no other issues or concerns at this time. PREVIOUS OFFICE NOTE: Incomplete bladder emptying Background seizure disorder Long-term medication Resident of a care facility Wheelchair dependent Initial High PVR Current therapy bethanechol [facility] Medical History Neurogenic bladder Dysarthria Gait abnormality Myalgia Dry eye syndrome Anoxic brain damage Anxiety Constipation Acute insomnia Review of Systems Const All systems reviewed & are unremarkable except as noted in HPI and below Physical Exam Const General: cooperative, comfortable, no acute distress, alert and awake Orientation/consciousness: oriented to person Limitations: ambulation with walker HEENT Head: Yes normal to inspection Eyes General: appearance normal, both eyes and all related structures Neck Neck: Yes normal visual inspection Chest Chest palpation & inspection: normal inspection of the chest Resp Effort & Inspection: normal respiratory effort Cardio Rate: regular rate GI Inspection: Yes normal to inspection General: Yes no CVA tenderness Back/Spine/Pelvis Back: no CVA tenderness Skin General skin exam: no rashes or lesions noted Neuro General: oriented to person Extrem General: Yes normal to inspection Psych Mental Status: other (TBI- slow to respond) Attitude: Avoids eye contact (attititude/behavior) Insight: Fair insight present (Psych) Judgement: Fair judgement present (Psych) Office Procedures Post Void Residual Post Residual Void Post Void Residual (PVR): 177 [id number] Void Residual by ultrasound Assessment & Plan Assessment & Plan (1) Urinary retention with incomplete bladder emptying: Code(s): R33.9 - Retention of urine, unspecified Category: Medical Plan Unable to obtain urine for urinalysis however PVR 177 mL. We discussed importance of taking medications as prescribed. We discussed potential causes and affects of incomplete bladder emptying; we discussed further treatment options and risks and benefits of these treatment options. Continue bethanechol as discussed and prescribed. He currently denies any bothersome urinary issues or concerns. He reports be happy with current voiding parameters. We discussed sooner appointment as patient with increased PVR in does not wish to be on any medication including urological medications; however patient does not feel this is necessary as he believes he does not have any urological issues and or concerns Discussed attempting to sit when voiding to relax pelvis and assist with bladder emptying Follow-up in 1 year with PVR; or sooner with any issues, concerns, and or questions. Orders: Orders AMB Post Void Residual by ultrasound Today R33.9 - Retention of urine, unspeci fied Patient Instructions: The patient had an opportunity to ask questions regarding the treatment plan. All questions were answered. Physical exam, labs, and imaging were discussed and reviewed in detail. As well as risks, benefits, and discussion of treatment choices. No major barriers to understanding were identified. The patient expres sed understanding and agreement with the above treatment plan. The patient was made aware they should contact our office by phone for worsening of their current condition, the appearance of new symptoms, or with any questions or concerns. Compliance is encouraged with any medications and follow up testing that is ordered. It is a privilege to be allowed the opportunity to participate in? your urological care.? Again, if you have any questions or concerns If you have any questions or concerns please do not hesitate to contact me. The office is [phone]. This note is constructed using voice recognition software. While every effort has been made to ensure accuracy cigarette making machine catcher errors may have been included. Yours sincerely, MILLIE Hernandez Coding Level of Care Code Est Pt Level 3 (75055) Complex EM visit Add On G2211 Diagnoses Urinary retention with incomplete bladder emptying R33.9 CPT Codes Post Residual Void - PVR CPT Code: 21831-Xahm Void Residual by ultrasound ([id number])
--- OUTSIDE RECORDS SUMMARY | 2024-07-06 11:56 | XMS_ITS | Encounter Summary ---
Author Organization [facility] Address [address] [place] [address] Care Team Providers Care Voltage Regulator Assembler Name Role Phone Franck Bull MD Primary Care Provider [phone] Encounter Details Date Type Department Care Team (Late st Contact Info) Description 04/26/2024 Lab Requisition [facility] Lab [address] [place] [address] Franck Bull MD [address] [place] [address] [address] [place] Hyperlipidemia, unspecified Social History Tobacco Use Types Packs/Day Years Used Date Smoking Tobacco: Never Assessed Sex and Gender Information Value Date Recorded Sex Assigned at Not on file Legal Sex Male 10:12 PM EST Gender Identity Not on file Sexual Orientation Not on file documented as of this encounter Plan of Treatment Not on file documented as of this encounter Procedures Procedure Name Priority Date/Time Associated Diagnosis Comments CBC WITH AUTO DIFFERENTIAL Routine 04/26/2024 6:54 AM EDT Hyperlipidemia, unspecified CBC AND DIFFERENTIAL Routine 04/26/2024 6:54 AM EDT Hyperlipidemia, unspecified THYROID STIMULATING HORMONE Routine 04/26/2024 6:54 AM EDT Hyperlipidemia, unspecified COMPREHENSIVE METABOLIC PANEL Routine 04/26/2024 6:54 AM EDT Hyperlipidemia, unspecified documented in this encounter Results * (ABNORMAL) CBC auto differential (04/26/2024 6:54 AM EDT) [facility] Signature WBC 6.5 4.8 - 10.8 K/[facility] LAB HEMETOLOGY METHOD 04/26/2024 8:19 AM EDT [facility] LAB RBC 5.40 4.50 - 5.50 M/mcL LAB HEMETOLOGY METHOD 04/26/2024 8:19 AM [facility] LAB Hemoglobin 16.5 13.5 - 17.5 g/dL LAB HEMETOLOGY METHOD 04/26/2024 8:19 AM [facility] LAB Hematocrit 48.5 42.0 - 54.0 % LAB HEMETOLOGY METHOD 04/26/2024 8:19 AM [facility] LAB MCV 89.5 79.0 - 98.0 FL LAB HEMETOLOGY METHOD 04/26/2024 8:19 AM [facility] LAB MCH 30.4 27.0 - 32.0 pcg LAB HEMETOLOGY METHOD 04/26/2024 8:19 AM [facility] LAB MCHC 34.0 32.0 - 37.0 g/dL LAB HEMETOLOGY METHOD 04/26/2024 8:19 AM [facility] LAB RDW 12.8 11.0 - 15.0 % LAB HEMETOLOGY METHOD 04/26/2024 8:19 AM [facility] LAB Platelets 228 130 - 400 K/mcL LAB HEMETOLOGY METHOD 04/26/2024 8:19 AM [facility] LAB MPV 11.2(H) 7.0 - 11.0 FL LAB HEMETOLOGY METHOD 04/26/2024 8:19 AM [facility] LAB NRBC 0.0 <1.0 % LAB HEMETOLOGY METHOD 04/26/2024 8:19 AM [facility] LAB NRBC Absolute 0.00 <0.10 K/mcL LAB HEMETOLOGY METHOD 04/26/2024 8:19 AM [facility] LAB Neutrophils Relative 50.2 % LAB HEMETOLOGY METHOD 04/26/2024 8:19 AM [facility] LAB Lymphocytes Relative 39.8 % LAB HEMETOLOGY METHOD 04/26/2024 8:19 AM EDT [facility] LAB Monocytes Relative 6.8 % LAB HEMETOLOGY METHOD 04/26/2024 8:19 AM EDT [facility] LAB Eosinophils Relative 2.5 % LAB HEMETOLOGY METHOD 04/26/2024 8:19 AM EDT [facility] LAB Basophils Relative 0.5 % LAB HEMETOLOGY METHOD 04/26/2024 8:19 AM EDT [facility] LAB Immature Granulocytes Relative 0.2 % LAB HEMETOLOGY METHOD 04/26/2024 8:19 AM EDT [facility] LAB Neutrophils Absolute 3.28 1.50 - 7.00 K/mcL LAB [facility]OLOGY [facility]24 [facility] Lymphocytes Absolute 2.59 1.00 - 5.00 K/mcL LAB HEMETOLOGY METHOD 04/26/2024 8:19 AM EDT [facility] Monocytes Absolute 0.44 0.20 - 1.00 K/mcL LAB HEMETOLOGY METHOD 04/[facility]24 8[facility] Eosinophils Absolute 0.16 0.00 - 0.50 K/mcL LAB HEMETOLOGY METHOD 04/26/2024 8:19 AM [facility] Basophils Absolute 0.03 0.00 - 0.20 K/mcL LAB HEMETOLOGY METHOD 04/26/2024 8:19 AM EDT [facility] LAB Immature Granulocytes Absolute 0.01 0.00 - 0.03 K/mcL LAB HEMETOLOGY METHOD 04/26/2024 8:19 AM [facility] LAB Blood Venous blood specimen / Unknown 04/26/2024 6:54 AM EDT 04/26/2024 7:43 AM EDT us Franck Bull MD LAB BLOOD ORDERABLES Final Resul t [facility] [address] [place] [address], [place] [phone] * Thyroid stimulating hormone (04/26/2024 6:54 AM EDT) [facility] TSH 0.97 0.40 - 4.00 mcIU/mL LAB CHEMISTRY METHOD 04/26/2024 8:48 AM EDT [facility] LAB Blood Venous blood specimen / Unknown 04/26/2024 6:54 AM EDT 04/26/2024 7:43 AM EDT Franck Bull MD LAB BLOOD ORDERABLES Final Resul t [facility] [address] [place] [address], [place] [phone] * Comprehensive metabolic panel (04/26/2024 6:54 AM EDT) [facility] Sodium 138 133 - 145 mmol/L LAB CHEMISTRY METHOD 04/26/2024 8:40 AM [facility] Potassium 3.9 3.5 - 5.5 mmol/L LAB CHEMISTRY METHOD 04/26/2024 8:40 AM [facility] Chloride 103 96 - 110 mmol/L LAB CHEMISTRY METHOD 04/26/2024 8:40 AM [facility] CO2 28 21 - 32 mmol/L LAB CHEMISTRY METHOD 04/26/2024 8:40 AM T [facility] Anion Gap 7 3 - 11 LAB CHEMISTRY METHOD 04/26/2024 8:40 AM [facility] Glucose 88 70 - 100 mg/dL LAB CHEMISTRY METHOD 04/26/2024 8:40 AM [facility] BUN 10 5 - 25 mg/dL LAB CHEMISTRY METHOD 04/26/2024 8:40 AM [facility] Creatinine 0.70 0.70 - 1.30 mg/dL LAB CHEMISTRY METHOD 04/26/2024 8:40 AM [facility] LAB eGFR 122 >=60 mL/min/1. 73m2 LAB CHEMISTRY METHOD 04/26/2024 8:40 AM [facility] LAB Comment:Calculation based on the??Chronic Kidney Disease Epidemiology Collaboration (CKD-EPI) equation refit??without adjustment for race. BUN/Creatinine Ratio 14.3 LAB CHEMISTRY METHOD 04/26/2024 8:40 AM [facility] Calcium 9.2 8.5 - 10.5 mg/dL LAB CHEMISTRY METHOD 04/26/2024 8:40 AM [facility] LAB AST (SGOT) 20 10 - 42 unit/L LAB CHEMISTRY METHOD 04/26/2024 8:40 AM [facility] LAB ALT (SGPT) 41 10 - 60 unit/L LAB CHEMISTRY METHOD 04/26/2024 8:40 AM [facility] LAB Alkaline Phosphatase 56 42 - 121 unit/L LAB CHEMISTRY METHOD 04/26/2024 8:40 AM [facility] LAB Total Protein 6.6 6.0 - 8.0 g/dL LAB CHEMISTRY METHOD 04/26/2024 8:40 AM [facility] LAB Albumin 3.8 3.2 - 5.0 g/dL LAB CHEMISTRY METHOD 04/26/2024 8:40 AM [facility] Total Bilirubin 0.8 0.0 - 1.4 mg/dL LAB CHEMISTRY METHOD 04/26/2024 8:40 AM [facility] LAB Blood Venous blood specimen / Unknown 04/26/2024 6:54 AM EDT 04/26/2024 7:43 AM EDT us Franck Bull MD LAB BLOOD ORDERABLES Final Resul t [facility] [address] [place], [place] [address] [phone] documented in this encounter Visit Diagnoses Diagnosis Hyperlipidemia, unspecified documented in this encounter Care Teams Voltage Regulator Assembler Relationship Specialty Start Date End Date Franck Bull MD [address] [place] [address] Dr [address] [place] PCP - General Internal Medicine 03/22/24 documented as of this encounter
--- OUTSIDE RECORDS SUMMARY | 2024-07-06 11:56 | XMS_ITS | Encounter Summary ---
Author Organization [facility] Address [address] [place] [address] Care Team Providers Care Bowling Ball Patcher Name Role Phone Franck Bull MD Primary Care Provider [phone] Encounter Details Date Type Department Care Team (Late st Contact Info) Description 06/20/2024 Lab Requisition [facility] Lab [address] [facility] [facility] [place] [place] [address] Franck Bull MD [address] [place] [address] [address] [place] Hyperlipidemia, unspecified Social History Tobacco Use Types [...] Procedure Name Priority Date/Time Associated Diagnosis Comments LIPID PANEL WITH REFLEX TO DIRECT LDL Routine 06/20/2024 5:15 AM EDT Hyperlipidemia, unspecified documented in this encounter Results * (ABNORMAL) Lipid panel with reflex to direct LDL (06/20/2024 5:15 AM EDT) Cholesterol 139 0 - 200 mg/dL LAB CHEMISTRY METHOD 06/20/2024 6:52 AM EDT [facility] Triglycerides 155(H) 0 - 150 mg/dL LAB CHEMISTRY METHOD 06/20/2024 6:52 AM EDT [facility] HDL 33(L) >=40 mg/dL LAB CHEMISTRY METHOD 06/20/2024 6:52 AM EDT [facility] LAB LDL Calculated 75 0 - 100 mg/dL LAB CHEMISTRY METHOD 06/20/2024 6:52 AM EDT [facility] LAB VLDL Cholesterol Juan 31 mg/dL LAB CHEMISTRY METHOD 06/20/2024 6:52 AM EDT [facility] LAB Non HDL Chol. (LDL+VLDL) 106 <145 mg/dL LAB CHEMISTRY METHOD 06/20/2024 6:52 AM EDT [facility] LAB Chol/HDL Ratio 4.2 0.0 - 4.4 LAB CHEMISTRY METHOD 06/20/2024 6:52 AM EDT [facility] LAB Blood Venous blood specimen / Unknown 06/20/2024 5:15 AM EDT 06/20/2024 6:24 AM EDT us Franck Bull MD LAB BLOOD ORDERABLES Final Resul t [facility] [address] [place] [address], documented in this encounter Visit Diagnoses Diagnosis Hyperlipidemia, unspecified documented in this encounter Care Teams Bowling Ball Patcher Relationship Specialty Start Date End Date Franck Bull MD [address] [place] [address] [address] [place] PCP - General Internal Medicine 03/22/24 documented as of this encounter
--- OUTSIDE RECORDS SUMMARY | 2024-07-06 11:56 | XMS_ITS | Encounter Summary ---
Author Organization [facility] Address [address] [place] [address] Care Team Providers Care Building Dismantler Name Role Phone Franck Bull MD Primary Care Provider [phone] Encounter Details Date Type Department Care Team (Late st Contact Info) Description 03/22/2024 Lab Requisition [facility] Lab [address] [place] [address] Franck Bull MD [address] [place] [address] Dr [address] [place] Encounter for screening for other digestive system disorders Social History Tobacco Use Types Packs/Day Years [...] Procedure Name Priority Date/Time Associated Diagnosis Comments HEPATIC FUNCTION PANEL Routine 03/22/2024 6:45 AM EST Encounter for screening for other digestive system disorders documented in this encounter Results * Hepatic function panel (03/22/2024 6:45 AM EST) Total Protein 7.1 6.0 - 8.0 g/dL LAB CHEMISTRY METHOD 03/22/2024 8:10 AM EST [facility] LAB Albumin 4.1 3.2 - 5.0 g/dL LAB CHEMISTRY METHOD 03/22/2024 8:10 AM EST [facility] LAB Total Bilirubin 1.2 0.0 - 1.4 mg/dL LAB CHEMISTRY METHOD 03/22/2024 8:10 AM [facility] LAB Bilirubin, Direct 0.3 0.0 - 0.3 mg/dL LAB CHEMISTRY METHOD 03/22/2024 8:10 AM EST [facility] LAB Bilirubin, Indirect 0.9 0.0 - 1.1 mg/dL LAB CHEMISTRY METHOD 03/22/2024 8:10 AM EST [facility] LAB ALT (SGPT) 34 10 - 60 unit/L LAB CHEMISTRY METHOD 03/22/2024 8:10 AM [facility] LAB AST (SGOT) 19 10 - 42 unit/L LAB CHEMISTRY METHOD 03/22/2024 8:10 AM [facility] LAB Alkaline Phosphatase 53 42 - 121 unit/L LAB CHEMISTRY METHOD 03/22/2024 8:10 AM [facility] LAB Blood Venous blood specimen / Unknown 03/22/2024 6:45 AM EST 03/22/2024 7:30 AM EST us Franck Bull MD LAB BLOOD ORDERABLES Final Resul t [facility] LAB [address] [place] [address], [place] [phone] documented in this encounter Visit Diagnoses Diagnosis Encounter for screening for other digestive system disorders documented in this encounter Care Teams Building Dismantler Relationship Specialty Start Date End Date Franck Bull MD [address] [place] [address] [address] [place] PCP - General Internal Medicine 03/22/24 documented as of this encounter
--- OUTSIDE RECORDS SUMMARY | 2024-07-06 11:58 | XMS_ITS | Encounter Summary ---
Author Organization [facility] Address [address] [place] [address] Care Team Providers Care Ditch Digger Name Role Phone Franck Bull MD Primary Care Provider [phone] Encounter Details Date Type Department Care Team (Late st Contact Info) Description 12/21/2023 Lab Requisition [facility] [address] [facility], [facility] [place] [address] Franck Bull MD [address] [place] [address] [address] [place] Hyperlipidemia, unspecified Social History Tobacco Use Types [...] PANEL WITH REFLEX TO DIRECT LDL Routine 12/21/2023 4:20 AM EST Hyperlipidemia, unspecified documented in this encounter Results * Lipid panel with reflex to direct LDL (12/21/2023 4:20 AM EST) Cholesterol 162 0 - 200 mg/dL LAB CHEMISTRY METHOD 12/21/2023 5:38 AM EST [facility] Triglycerides 85 0 - 150 mg/dL LAB CHEMISTRY METHOD 12/21/2023 5:38 AM EST [facility] HDL 49 >=40 mg/dL LAB CHEMISTRY METHOD 12/21/2023 5:38 AM EST [facility] LDL Calculated 96 0 - 100 mg/dL LAB CHEMISTRY METHOD 12/21/2023 5:38 AM EST [facility] VLDL Cholesterol Juan 17 mg/dL LAB CHEMISTRY METHOD 12/21/2023 5:38 AM EST [facility] Non HDL Chol. (LDL+VLDL) 113 <145 mg/dL LAB CHEMISTRY METHOD 12/21/2023 5:38 AM EST [facility] Chol/HDL Ratio 3.3 0.0 - 4.4 LAB CHEMISTRY METHOD 12/21/2023 5:38 AM [facility] Blood Venous blood specimen / Unknown 12/21/2023 4:20 AM EST 12/21/2023 4:59 AM EST us Franck Bull MD LAB BLOOD ORDERABLES Final Resul t [facility] [address] [place] [address], [place] [phone] documented in this encounter Visit Diagnoses Diagnosis Hyperlipidemia, unspecified documented in this encounter Care Teams Ditch Digger Relationship Specialty Start Date End Date Franck Bull MD [address] [place] [address] Dr [address] [place], [place] PCP - General Internal Medicine 03/22/24 documented as of this encounter
--- OUTSIDE RECORDS SUMMARY | 2024-07-06 11:58 | XMS_ITS | Encounter Summary ---
Author Organization [facility] Address [address] [place] [address] Care Team Providers Care Stitch Cleaner Name Role Phone Franck Bull MD Primary Care Provider [phone] Encounter Details Date Type Department Care Team (Late st Contact Info) Description 02/26/2024 Lab Requisition [facility] Lab [address] [place] [address] Franck Bull MD [address] [place] [address] [address] [place], [place] Vitamin D deficiency, unspecified; Other group home (current) drug therapy Social History Tobacco Use Types Packs/Day Years [...] Procedure Name Priority Date/Time Associated Diagnosis Comments VITAMIN D 25 HYDROXY Routine 02/26/2024 6:35 AM EST Vitamin D deficiency, unspecified 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 documented in this encounter Results * Vitamin D 25 hydroxy (02/26/2024 6:35 AM EST) Vit D, 25-Hydroxy 46.9 30.0 - 80.0 ng/mL LAB CHEMISTRY METHOD 02/26/2024 9:58 AM EST [facility] Blood Venous blood specimen / Unknown 02/26/2024 6:35 AM EST 02/26/2024 7:38 AM EST us Franck Bull MD LAB BLOOD ORDERABLES Final Resul t [facility] [address] [place] [address], documented in this encounter Visit Diagnoses Diagnosis Vitamin D deficiency, unspecified Other group home (current) drug therapy documented in this encounter Care Teams Stitch Cleaner Relationship Specialty Start Date End Date Franck Bull MD [address] [place] [address] Dr [address] [place], [place] PCP - General Internal Medicine 03/22/24 documented as of this encounter
--- OUTSIDE RECORDS SUMMARY | 2024-07-06 11:59 | XMS_ITS | Clinical Summary ---
Author Organization [address] [facility] Address [address] [place] [address] Phone Care Team Providers Care Archeologist Classical Name Role Phone Franck Bull MD Primary Care Provider [phone] Encounters Date Type Department Care Team Description 06/20/2024 Lab Requisition [facility] Lab [address] [place] [address] Franck Bull MD Hyperlipidemia, unspecified 04/26/2024 Lab Requisition [facility] Lab [address] [place] [address] Franck Bull MD Hyperlipidemia, unspecified from Last 3 Months Social History Tobacco Use Types Packs/Day Years Used Date Smoking Tobacco: Never Assessed Sex and Gender Information Value Date Recorded Sex Assigned at Not on file Legal Sex Male 10:12 PM EST Gender Identity Not on file Sexual Orientation Not on file Plan of Treatment Health Maintenance Due Date Last Done Comments DTaP,Tdap,and Td Vaccines (1 - Tdap) 10/03/2006 Hepatitis B Vaccines (1 of 3 - 19+ 3-dose series) 10/03/2006 Depression Screening 01/18/2022 HIV Screening 01/18/2022 Hepatitis C Screening 01/18/2022 Social Influencers of Health Screening 01/18/2022 COVID-19 Vaccine ( - 2023-2 5 season) 2023 Influenza Vaccine (Season Ended) 2024 Cholesterol Screening (Lipid Panel) 06/20/2029 06/20/2024, 12/21/2023 HIB Vaccines Aged Out No longer eligi ble based on patient's age to complete this topic HPV Vaccines Aged Out No longer eligi ble based on patient's age to complete this topic Hepatitis A Vaccines Aged Out No long er eligible based on patient's age to complete this topic IPV Vaccines Aged Out No longer eligi ble based on patient's age to complete this topic MMR Vaccines Aged Out No longer eligi ble based on patient's age to complete this topic Meningococcal ACWY Vaccine Aged Out N o longer eligible based on patient's age to complete this topic Meningococcal B Vaccine Aged Out No l onger eligible based on patient's age to complete this topic Pneumococcal Vaccine: Pediatrics (0 to 5 Years) and At-Risk Patients (6 to 64 Years) Aged Out No longer eligible b ased on patient's age to complete this topic RSV Immunization Patients Under 20 months Aged Out No longer eligible b ased on patient's age to complete this topic Varicella Vaccines Aged Out No longer eligible based on patient's age to complete this topic Procedures Procedure Name Priority Date/Time Associated Diagnosis Comments LIPID PANEL WITH REFLEX TO DIRECT LDL Routine 06/20/2024 5:15 AM EDT Hyperlipidemia, unspecified CBC WITH AUTO DIFFERENTIAL Routine 04/26/2024 6:54 AM EDT Hyperlipidemia, unspecified THYROID STIMULATING HORMONE Routine 04/26/2024 6:54 AM EDT Hyperlipidemia, unspecified CBC AND DIFFERENTIAL Routine 04/26/2024 6:54 AM EDT Hyperlipidemia, unspecified COMPREHENSIVE METABOLIC PANEL Routine 04/26/2024 6:54 AM EDT Hyperlipidemia, unspecified from Last 3 Months Results * (ABNORMAL) Lipid panel with reflex to direct LDL (06/20/2024 5:15 AM EDT) [facility] Signature Cholesterol 139 0 - 200 mg/dL LAB CHEMISTRY METHOD 06/20/2024 6:52 AM EDT [facility] Triglycerides 155(H) 0 - 150 mg/dL LAB CHEMISTRY METHOD 06/20/2024 6:52 AM EDT [facility] HDL 33(L) >=40 mg/dL LAB CHEMISTRY METHOD 06/20/2024 6:52 AM [facility] LDL Calculated 75 0 - 100 mg/dL LAB CHEMISTRY METHOD 06/20/2024 6:52 AM EDT [facility] VLDL Cholesterol Juan 31 mg/dL LAB CHEMISTRY METHOD 06/20/2024 6:52 AM EDT [facility] Non HDL Chol. (LDL+VLDL) 106 <145 mg/dL LAB CHEMISTRY METHOD 06/20/2024 6:52 AM EDT [facility] Chol/HDL Ratio 4.2 0.0 - 4.4 LAB CHEMISTRY METHOD 06/20/2024 6:52 AM EDT [facility] Blood Venous blood specimen / Unknown 06/20/2024 5:15 AM EDT 06/20/2024 6:24 AM EDT us Franck Bull MD LAB BLOOD ORDERABLES Final Resul t [facility] [address] [place] [address], * (ABNORMAL) CBC auto differential (04/26/2024 6:54 AM EDT) WBC 6.5 4.8 - 10.8 K/mcL LAB HEMETOLOGY METHOD 04/26/2024 8:19 AM [facility] RBC 5.40 4.50 - 5.50 M/mcL LAB HEMETOLOGY METHOD 04/26/2024 8:19 AM [facility] Hemoglobin 16.5 13.5 - 17.5 g/dL LAB HEMETOLOGY METHOD 04/26/2024 8:19 AM [facility] Hematocrit 48.5 42.0 - 54.0 % LAB HEMETOLOGY METHOD 04/26/2024 8:19 AM [facility] MCV 89.5 79.0 - 98.0 FL LAB HEMETOLOGY METHOD 04/26/2024 8:19 AM [facility] MCH 30.4 27.0 - 32.0 pcg LAB HEMETOLOGY METHOD 04/26/2024 8:19 AM [facility] MCHC 34.0 32.0 - 37.0 g/dL LAB HEMETOLOGY METHOD 04/26/2024 8:19 AM [facility] RDW 12.8 11.0 - 15.0 % LAB HEMETOLOGY METHOD 04/26/2024 8:19 AM [facility] Platelets 228 130 - 400 K/mcL LAB HEMETOLOGY METHOD 04/26/2024 8:19 AM [facility] MPV 11.2(H) 7.0 - 11.0 FL LAB HEMETOLOGY METHOD 04/26/2024 8:19 AM [facility] NRBC 0.0 <1.0 % LAB HEMETOLOGY METHOD 04/26/2024 8:19 AM [facility] NRBC Absolute 0.00 <0.10 K/mcL LAB HEMETOLOGY METHOD 04/26/2024 8:19 AM [facility] Neutrophils Relative 50.2 % LAB HEMETOLOGY METHOD 04/26/2024 8:19 AM [facility] Lymphocytes Relative 39.8 % LAB HEMETOLOGY METHOD 04/26/2024 8:19 AM [facility] Monocytes Relative 6.8 % LAB HEMETOLOGY METHOD 04/26/2024 8:19 AM [facility] Eosinophils Relative 2.5 % LAB HEMETOLOGY METHOD 04/26/2024 8:19 AM [facility] Basophils Relative 0.5 % LAB HEMETOLOGY METHOD 04/26/2024 8:19 AM [facility] Immature Granulocytes Relative 0.2 % LAB HEMETOLOGY METHOD 04/26/2024 8:19 AM [facility] Neutrophils Absolute 3.28 1.50 - 7.00 K/mcL LAB HEMETOLOGY METHOD 04/26/2024 8:19 AM EDT [facility] Lymphocytes Absolute 2.59 1.00 - 5.00 K/mcL LAB HEMETOLOGY METHOD 04/26/2024 8:19 AM EDT [facility] Monocytes Absolute 0.44 0.20 - 1.00 K/mcL LAB HEMETOLOGY METHOD 04/26/2024 8:19 AM EDT [facility] Eosinophils Absolute 0.16 0.00 - 0.50 K/[facility] LAB HEMETOLOGY METHOD 04/26/2024 8:19 AM EDT [facility] Basophils Absolute 0.03 0.00 - 0.20 K/[facility] LAB HEMETOLOGY METHOD 04/26/2024 8:19 AM EDT [facility] Immature Granulocytes Absolute 0.01 0.00 - 0.03 K/mcL LAB HEMETOLOGY METHOD 04/26/2024 8:19 AM EDT [facility] Blood Venous blood specimen / Unknown 04/26/2024 6:54 AM EDT 04/26/2024 7:43 AM EDT us Franck Bull MD LAB BLOOD ORDERABLES Final Resul t Performing Organization Address City/[facility]/ZIP Co de Phone Number [facility] [address] [place] [address], * Thyroid stimulating hormone (04/26/2024 6:54 AM EDT) TSH 0.97 0.40 - 4.00 mcIU/mL LAB CHEMISTRY METHOD 04/26/2024 8:48 AM EDT [facility] Blood Venous blood specimen / Unknown 04/26/2024 6:54 AM EDT 04/26/2024 7:43 AM EDT us Franck Bull MD LAB BLOOD ORDERABLES Final Resul t [facility] [address] [place] [address], * Comprehensive metabolic panel (04/26/2024 6:54 AM EDT) Sodium 138 133 - 145 mmol/L LAB CHEMISTRY METHOD 04/26/2024 8:40 AM EDT [facility] Potassium 3.9 3.5 - 5.5 mmol/L LAB CHEMISTRY METHOD 04/26/2024 8:40 AM T [facility] Chloride 103 96 - 110 mmol/L LAB CHEMISTRY METHOD 04/26/2024 8:40 AM T [facility] CO2 28 21 - 32 mmol/L LAB CHEMISTRY METHOD 04/26/2024 8:40 AM [facility] Anion Gap 7 3 - 11 LAB CHEMISTRY METHOD 04/26/2024 8:40 AM [facility] Glucose 88 70 - 100 mg/dL LAB CHEMISTRY METHOD 04/26/2024 8:40 AM [facility] BUN 10 5 - 25 mg/dL LAB CHEMISTRY METHOD 04/26/2024 8:40 AM [facility] Creatinine 0.70 0.70 - 1.30 mg/dL LAB CHEMISTRY METHOD 04/26/2024 8:40 AM [facility] eGFR 122 >=60 mL/min/1. 73m2 LAB CHEMISTRY METHOD 04/26/2024 8:40 AM [facility] Comment:Calculation based on the??Chronic Kidney Disease Epidemiology Collaboration (CKD-EPI) equation refit??without adjustment for race. BUN/Creatinine Ratio 14.3 LAB CHEMISTRY METHOD 04/26/2024 8:40 AM [facility] Calcium 9.2 8.5 - 10.5 mg/dL LAB CHEMISTRY METHOD 04/26/2024 8:40 AM [facility] AST (SGOT) 20 10 - 42 unit/L LAB CHEMISTRY METHOD 04/26/2024 8:40 AM EDT [facility] ALT (SGPT) 41 10 - 60 unit/L LAB CHEMISTRY METHOD 04/26/2024 8:40 AM EDT [facility] Alkaline Phosphatase 56 42 - 121 unit/L LAB CHEMISTRY METHOD 04/26/2024 8:40 AM EDT [facility] Total Protein 6.6 6.0 - 8.0 g/dL LAB CHEMISTRY METHOD 04/26/2024 8:40 AM EDT [facility] Albumin 3.8 3.2 - 5.0 g/dL LAB CHEMISTRY METHOD 04/26/2024 8:40 AM EDT [facility] Total Bilirubin 0.8 0.0 - 1.4 mg/dL LAB CHEMISTRY METHOD 04/26/2024 8:40 AM EDT [facility] Blood Venous blood specimen / Unknown 04/26/2024 6:54 AM EDT 04/26/2024 7:43 AM EDT us Franck Bull MD LAB BLOOD ORDERABLES Final Resul t [facility] [address] [place] [address], [place] [phone] from Last 3 Months Care Teams Archeologist Classical Relationship Specialty Start Date End Date Franck Bull MD [address] [place] [address] [facility] [place] PCP - General Internal Medicine 03/22/24
--- OUTSIDE RECORDS SUMMARY | 2024-07-06 11:59 | XMS_ITS ---
Author Name [facility] Organization Unknown Care Team Organization Name Specialty Phone Email Start Date End [facility] [address] [facility] 08/28/2022
== END 2024-07-06 10:58 | disposition home or self-care (01) ==
LOC: HO.HUSH 10:29
PROVIDERS: PCP Hospitalist; Visit Provider Nurse Practitioner Family
DX: R33.9 Retention of urine, unspecified (principal)
CPT/HCPCS: 99213; G2211

== ENCOUNTER → 2024-07-06 10:29 | Outpatient (BNVA) | payer MEDICAID, SELFPAY | PROVIDERS: PCP Hospitalist; Visit Provider Nurse Practitioner Family | DX: R33.9 Retention of urine, unspecified (principal) | CPT/HCPCS: 51798; 99212 ==